=== PATIENT | male | born 1965 | race Caucasian/White ===

== ENCOUNTER 2021-08-11 12:54 | Emergency (ER) | payer MEDICAID ==
[~2021-08-11] VITALS: Ht 170.2 cm; Wt 90.7 kg
[2021-08-11 13:14] VITALS: BP 134/90
--- NOTE | 2021-08-11 13:45 | NUR ---
[employer] EVER Connor from Floor utilized to discuss plan of care. Puncture Wound on Right hand cleaned/irrigated by LISSET Beebe. Polysporin and dressing applied to site
[2021-08-11] MEDS ORDERED: ALBU8.5H8 INH (14:16)
[2021-08-11] MEDS ORDERED: BUDE10.2 INH (14:16)
[2021-08-11] MEDS ORDERED: PRED20TA PO (14:16)
[2021-08-11] MEDS ORDERED: AMOX-430 PO (14:16)
--- NOTE | 2021-08-11 14:23 | NUR ---
Patient discharged to home in stable condition. Written and verbal after care instructions given. Patient verbalizes understanding of instruction.
== END 2021-08-11 14:24 | disposition home or self-care (01) ==
LOC: ER 12:57
DX: J44.9 Chronic obstructive pulmonary disease, unspecified (principal); K04.7 Periapical abscess without sinus; Z76.0 Encounter for issue of repeat prescription

== ENCOUNTER 2022-02-01 15:56 | Emergency (ER) | payer SELFPAY ==
[~2022-02-01] VITALS: Ht 170.2 cm; Wt 79.4 kg
[~2022-02-01 15:56] MED LIST: ALBU8.5H8 INH; AMOX-430 PO; BUDE10.2 INH; PRED20TA PO
[2022-02-01 16:04] VITALS: BP 140/72
--- NOTE | 2022-02-01 18:00 | NUR ---
DR THOMAS LOOKING FOR HIM TO SEE HIM BUT ABSENT FROM THE DEPARTMENT. CALLED ON HIS CELL,HE SAID THAT HE HAD TO LEAVE BECAUSE HIS SISTER CALLED HIM AND CAN'T COME BACK,DR THOMAS AWARE
== END 2022-02-01 18:02 | disposition left against medical advice (07) ==
LOC: ER 16:01
DX: Z53.21 Procedure and treatment not carried out due to patient leaving prior to being seen by health care provider (principal); M25.571 Pain in right ankle and joints of right foot; J44.9 Chronic obstructive pulmonary disease, unspecified; Z98.890 Other specified postprocedural states
CPT/HCPCS: 73600-TC